=== PATIENT | female | born 1990 | race Caucasian/White ===

== ENCOUNTER → 2017-03-27 | Outpatient (CLI) | payer OTHER ==
[~2017-03-27] MED LIST: ACETAMINOPHEN325 MG PO; CELEXA40 MG PO; FIORICET 50-301 EACH PO; FLORASTOR250 MG PO; KEFLEX500 MG PO
== END | disposition disaster alternative care site (69) ==
LOC: GCAR 09:00
DX: R07.89 Other chest pain (principal); R00.2 Palpitations